=== PATIENT | male | born 1945 | race Caucasian/White ===

== ENCOUNTER 2023-02-10 03:15 | Emergency (ER) | payer MEDICARE, BC ==
[~2023-02-10] VITALS: Ht 175.3 cm; Wt 95.3 kg
--- NOTE | 2023-02-10 03:25 | NUR ---
BIBRA C/O NAUSEA, VOMITING X1 AFTER DINNER, SORETHROAT ALL DAY. PLACED IN BED, CHANGED INTO GOWN, VITALS CHECKED.
--- NOTE | 2023-02-10 03:25 | NUR ---
20GA TO RIGHT HAND ESTABLISHED COMPARATIVE SOCIOLOGY PROFESSOR
--- NOTE | 2023-02-10 03:30 | NUR ---
DR. SMALLWOOD AT BEDSIDE
[2023-02-10] MEDS ORDERED: ONDANSETRON 4 MG TAB.RAPDIS ONE (03:40)
--- NOTE | 2023-02-10 03:46 | NUR ---
LAB AT BEDSIDE
--- NOTE | 2023-02-10 03:47 | NUR ---
EMT AT BEDSIDE FOR EKG
--- NOTE | 2023-02-10 03:47 | NUR ---
EKG DONE AT BEDSIDE
[2023-02-10] MEDS ORDERED: ONDANSETRON 4 MG TAB.RAPDIS SL ONE (04:00)
[2023-02-10 04:06] LABS: BASOPHILS # (AUTO) 0.1 K/uL (0.0-0.2); BASOPHILS % (AUTO) 0.6 % (0.0-2.0); EOSINOPHILS % (AUTO) 1.3 % (0.0-6.0); HEMATOCRIT 42 % (39-51); HEMOGLOBIN 13.8 g/dL (13.5-17.5); LYMPHOCYTES # (AUTO) 1.1 K/uL (0.8-4.8); LYMPHOCYTES % (AUTO) 12.4 % (20.0-44.0); MEAN CORPUSCULAR HGB CONC 33 g/dl (31.0-36.0); MEAN CORPUSCULAR VOLUME 95 fL (80-96); MONOCYTES # (AUTO) 0.5 K/uL (0.1-1.30); MONOCYTES % (AUTO) 6.2 % (2.0-12.0); NEUTROPHILS % (AUTO) 79.5 % (43.0-81.0); PLATELET COUNT (AUTO) 170 K/uL (150-450); RED BLOOD CELL COUNT(AUTO) 4.45 MIL/uL (4.5-6.0); WHITE BLOOD COUNT (AUTO) 8.8 K/uL (4.3-11.0)
--- NOTE | 2023-02-10 04:19 | NUR ---
AUDOGRAPH OPERATOR AT PT'S BEDSIDE
[2023-02-10 04:25] LABS: ALANINE AMINOTRANSFERASE 28 U/L (12-78); ALBUMIN 3.3 g/dL (3.4-5.0); ALKALINE PHOSPHATASE 77 U/L (46-116); ASPARTATE AMINOTRANSFERASE 20 U/L (15-37); BILIRUBIN,DIRECT 0.1 mg/dL (0.0-0.2); BILIRUBIN,TOTAL 0.3 mg/dL (0.2-1.0); CALCIUM, SERUM 8.9 mg/dL (8.5-10.1); CARBON DIOXIDE 27 mmol/L (21-32); CHLORIDE 104 mmol/L (98-107); CREATININE 0.9 mg/dL (0.6-1.3); GLUCOSE 242 mg/dL (74-106); POTASSIUM 3.6 mmol/L (3.5-5.1); SODIUM SERUM 141 mmol/L (136-145); TOTAL PROTEIN, SERUM 6.9 g/dL (6.4-8.2); UREA NITROGEN, BLOOD 21 mg/dL (7-18)
--- NOTE | 2023-02-10 06:09 | NUR ---
PT REQUESTING TO LEAVE, SIGNING AMA FORM. DR. SMALLWOOD AWARE. IV CATHETER REMOVED. PT IN STABLE CONDITION.
[2023-02-10 06:10] VITALS: BP 145/67
== END 2023-02-10 06:10 | disposition left against medical advice (07) ==
LOC: ER 03:17
DX: R11.2 Nausea with vomiting, unspecified (principal); I10 Essential (primary) hypertension; Z60.2 Problems related to living alone
CPT/HCPCS: 99285; 71045; 93005; 85025; 80048; 80076; 36415; 84484; 85730; Q0162

== ENCOUNTER 2024-09-25 10:44 | Emergency (ER) | payer MEDICARE, BC ==
[~2024-09-25] VITALS: Ht 175.3 cm; Wt 97.5 kg
[2024-09-25] MEDS: MAG HYDROX/AL HYDROX/SIMETH 30 ML UDC PO ONE (12:00)
[2024-09-25] MEDS: FAMOTIDINE/PF INJ 20 MG/2 ML VIAL IV ONE (12:00)
[2024-09-25] MEDS ORDERED: FAMOTIDINE/PF INJ 20 MG/2 ML VIAL IV ONE (12:04)
[2024-09-25] MEDS ORDERED: MAG HYDROX/AL HYDROX/SIMETH 30 ML UDC ONE (12:05)
[2024-09-25 12:36] LABS: BASOPHILS # (AUTO) 0.1 K/uL (0.0-0.2); BASOPHILS % (AUTO) 0.6 % (0.0-2.0); EOSINOPHILS % (AUTO) 0.3 % (0.0-6.0); HEMATOCRIT 49 % (39-51); HEMOGLOBIN 16.5 g/dL (13.5-17.5); LYMPHOCYTES # (AUTO) 1.3 K/uL (0.8-4.8); LYMPHOCYTES % (AUTO) 12.3 % (20.0-44.0); MEAN CORPUSCULAR HEMOGLOBIN 32 PG (26.0-33.0); MEAN CORPUSCULAR HGB CONC 34 g/dl (31.0-36.0); MEAN CORPUSCULAR VOLUME 96 fL (80-96); MONOCYTES # (AUTO) 0.8 K/uL (0.1-1.30); MONOCYTES % (AUTO) 7.6 % (2.0-12.0); NEUTROPHILS # (AUTO) 8.2 K/uL (1.8-8.9); NEUTROPHILS % (AUTO) 79.2 % (43.0-81.0); PLATELET COUNT (AUTO) 209 K/uL (150-450); RED BLOOD CELL COUNT(AUTO) 5.11 MIL/uL (4.5-6.0); WHITE BLOOD COUNT (AUTO) 10.4 K/uL (4.3-11.0)
[2024-09-25 12:46] LABS: CALCIUM, SERUM 10.1 mg/dL (8.5-10.1); CARBON DIOXIDE 32 mmol/L (21-32); CHLORIDE 99 mmol/L (98-107); CREATININE 0.8 mg/dL (0.6-1.3); GLUCOSE 128 mg/dL (74-106); POTASSIUM 3.7 mmol/L (3.5-5.1); SODIUM SERUM 139 mmol/L (136-145); UREA NITROGEN, BLOOD 23 mg/dL (7-18)
[2024-09-25 13:09] LABS: ALANINE AMINOTRANSFERASE 26 U/L (12-78); ALBUMIN 3.8 g/dL (3.4-5.0); ALKALINE PHOSPHATASE 54 U/L (46-116); ASPARTATE AMINOTRANSFERASE 25 U/L (15-37); BILIRUBIN,DIRECT 0.1 mg/dL (0.0-0.2); BILIRUBIN,TOTAL 0.4 mg/dL (0.2-1.0)
[2024-09-25] MEDS ORDERED: ONDANSETRON HCL/PF 4 MG/2 ML VIAL ONE (13:59)
[2024-09-25] MEDS: IV NS 0.9% 500 ML BAG IV ONE (14:00)
[2024-09-25] MEDS: ONDANSETRON HCL/PF 4 MG/2 ML VIAL IV ONE (14:00)
[2024-09-25 16:31] VITALS: BP 141/81; TEMP 98.3; O2SAT 98
== END 2024-09-25 16:32 | disposition left against medical advice (07) ==
LOC: ER 10:46
DX: K56.600 Partial intestinal obstruction, unspecified as to cause (principal); R07.89 Other chest pain; E78.5 Hyperlipidemia, unspecified; I10 Essential (primary) hypertension
CPT/HCPCS: 99285; 71250; 96374; 71045; 96375; 93005; 74176; 85025; 80048; 80076; 36415; 84484 ×2; J3490; J2405; J7040